=== PATIENT | female | born 1960 | race Caucasian/White ===

== ENCOUNTER → 2018-09-15 | Outpatient (CLI) | payer OTHER ==
--- NOTE | 2018-09-15 12:12 | Diagnostic Imaging Report ---
EXAMINATION: Left ankle 1132h INDICATION: Ankle pain 3 views were obtained. There are no prior studies available for comparison. Reportedly, the patient injured her ankle in February of this year. There is a linear lucency extending transversely through the lateral malleolus. This would be consistent with a fracture. There does seem to be some sclerosis on each side of the linear lucency and consequently this injury is not acute but more likely to be subacute or perhaps even secondary to the injury the patient suffered in February this year. If this is related to the injury from 6 months ago, then this fracture has not healed. There is no other fracture or acute bony abnormality identified. The ankle mortise is not widened and the talar dome is smooth. The soft tissues are unremarkable. IMPRESSION: 1. There is a nondisplaced transverse fracture of the lateral malleolus of the distal fibula. This injury is more likely to be subacute or chronic in nature than due to an acute abnormality. Clinical followup is recommended. 2. There is no acute bony abnormality noted otherwise. Dictated by: Dictated on workstation # [id number]
== END ==
LOC: EDBD 11:14 → ORTHO 11:14
PROVIDERS: ATTEND Orthopaedic Surgery
DX: S82.425A Nondisplaced transverse fracture of shaft of left fibula, initial encounter for closed fracture (principal); X58.XXXA Exposure to other specified factors, initial encounter
CPT/HCPCS: 73610; 99203

== ENCOUNTER → 2018-10-17 | Outpatient (CLI) | payer OTHER | LOC: ORTHO 10:02 | PROVIDERS: ATTEND Orthopaedic Surgery | DX: S82.425A Nondisplaced transverse fracture of shaft of left fibula, initial encounter for closed fracture (principal); X58.XXXA Exposure to other specified factors, initial encounter | CPT/HCPCS: 99213 ==